=== PATIENT | male | born 1945 | race Caucasian/White ===

== ENCOUNTER → 2019-07-26 | Outpatient (CLI) | payer MEDICARE ==
--- NOTE | 2019-07-26 09:03 | CT ---
EXAMINATION TYPE: CT cervical spine wo con DATE OF EXAM: 07/26/2019 COMPARISON: None HISTORY: neck pain CT DLP: 644.[address] of the cervical spine was performed with bone and soft tissue window settings submitted . Coronal and sagittal reconstruction is obtained. C2-3: Within normal limits C3-4: Mild degenerative disc space narrowing. Posterocentral disc bulge with mild effacement ventral thecal sac. No evidence for central stenosis or tee herniation. Mild bilateral foraminal encroachme nt. C4-5: Severe degenerative disc disease with ventral and dorsal spondylosis. Posterior disc bulge and effacement ventral thecal sac. No evidence for central stenosis or disc herniation. Bilateral foramin al encroachment. C5-6: Severe degenerative disc disease with posterior disc bulge and encapsulating spur resulting in disc endplate complex. Effacement ventral thecal sac with the borderline central stenosis. Severe darrion ateral foraminal encroachment. C6-7:Severe degenerative disc disease with posterior disc bulge and encapsulating spur resulting in d isc endplate complex. Effacement ventral thecal sac with the borderline central stenosis. Severe bila teral foraminal encroachment. C7-T1: Within normal limits No evidence for fracture or malalignment. IMPRESSION: 1. Multilevel degenerative disc disease with spondylosis. Borderline central stenosis C4-5 C5-6. See above.
== END | disposition home or self-care (01) ==
LOC: RADCTMAIN 07:28
PROVIDERS: ATTEND Orthopaedic Surgery Orthopaedic Surgery of the Spine
DX: M48.02 Spinal stenosis, cervical region (principal); M50.11 Cervical disc disorder with radiculopathy, high cervical region; M47.22 Other spondylosis with radiculopathy, cervical region
CPT/HCPCS: 72125

== ENCOUNTER → 2023-12-31 | Outpatient (CLI) | payer MEDICARE ==
[2023-12-31 17:24] LABS: Partial Thromboplastin Time 32.2 sec (22.0-30.0); Prothrombin Time 11.3 sec (10.0-12.5)
[2024-01-01 02:47] LABS: HCT 33.5 % (39.6-50.0); HGB 10.4 g/dL (13.0-17.0); MCH 28.8 pg (27.0-32.0); MCV 92.8 FL (80.0-97.0); NRBC Per 100 WBC 0 X 10*3/uL (0.00-0.01); Platelet Count 397 X 10*3/uL (140-440); RBC 3.61 X 10*6/uL (4.40-5.60); RDW 14.6 % (11.5-14.5); WBC 7.28 X 10*3/uL (4.50-10.00)
[2024-01-01 03:37] LABS: ALT 20 U/L (10-49); AST 24 U/L (14-35); Albumin 3.4 g/dL (3.8-4.9); Albumin/Globulin Ratio 1.13 Ratio (1.60-3.17); Alkaline Phosphatase 83 U/L (41-126); BUN/Creat Ratio 18.44 Ratio (12.00-20.00); Blood Urea Nitrogen 16.6 mg/dL (9.0-27.0); Calcium 9.2 mg/dL (8.7-10.3); Carbon Dioxide 24.8 mmol/L (21.6-31.8); Chloride 102 mmol/L (96-109); Glucose 106 mg/dL (70-110); Potassium 5.1 mmol/L (3.5-5.5); Sodium 140 mmol/L (135-145); Total Bilirubin 0.3 mg/dL (0.3-1.2); Total Protein 6.4 g/dL (6.2-8.2)
== END | disposition home or self-care (01) ==
LOC: LABPAT 15:45
PROVIDERS: ATTEND Orthopaedic Surgery
DX: Z01.818 Encounter for other preprocedural examination (principal); Z22.322 Carrier or suspected carrier of Methicillin resistant Staphylococcus aureus; R94.31 Abnormal electrocardiogram [ECG] [EKG]
CPT/HCPCS: 80053; 85027; 85610; 85730; 87070; 93005

== ENCOUNTER → 2024-01-19 | Outpatient (CLI) | payer MEDICARE ==
[2024-01-19 15:02] LABS: Partial Thromboplastin Time 28.7 sec (22.0-30.0); Prothrombin Time 11.1 sec (10.0-12.5)
[2024-01-19 19:56] LABS: HCT 36.7 % (39.6-50.0); HGB 11.2 g/dL (13.0-17.0); MCH 27.5 pg (27.0-32.0); MCHC 30.5 g/dL (32.0-37.0); MCV 90.2 FL (80.0-97.0); NRBC Per 100 WBC 0 X 10*3/uL (0.00-0.01); Platelet Count 540 X 10*3/uL (140-440); RBC 4.07 X 10*6/uL (4.40-5.60); WBC 7.56 X 10*3/uL (4.50-10.00)
[2024-01-19 20:02] LABS: ALT 32 U/L (10-49); AST 30 U/L (14-35); Albumin 3.6 g/dL (3.8-4.9); Albumin/Globulin Ratio 1.12 Ratio (1.60-3.17); Alkaline Phosphatase 89 U/L (41-126); BUN/Creat Ratio 11.89 Ratio (12.00-20.00); Blood Urea Nitrogen 10.7 mg/dL (9.0-27.0); Calcium 9.2 mg/dL (8.7-10.3); Carbon Dioxide 25.4 mmol/L (21.6-31.8); Chloride 102 mmol/L (96-109); Globulin 3.2 g/dL (1.6-3.3); Glucose 110 mg/dL (70-110); Potassium 4.8 mmol/L (3.5-5.5); Sodium 141 mmol/L (135-145); Total Bilirubin 0.4 mg/dL (0.3-1.2); Total Protein 6.8 g/dL (6.2-8.2)
== END | disposition home or self-care (01) ==
LOC: LABPAT 14:10
PROVIDERS: ATTEND Orthopaedic Surgery
DX: Z01.812 Encounter for preprocedural laboratory examination (principal); T84.06 Wear of articular bearing surface of internal prosthetic joint; Y82.9 Unspecified medical devices associated with adverse incidents
CPT/HCPCS: 80053; 85027; 85610; 85730; 87070

== ENCOUNTER 2024-02-10 09:27 | Inpatient (IN) | payer MEDICARE ==
[~2024-02-10 09:27] MED LIST: ACETAMINOPHEN TAB 500 MG TAB ONE; DEXAMETHASONE SOD PHOSPHATE 4 MG/ML 1 ML VIAL ONE; DILTIAZEM CD 300 MG CAP.ER.24H PO ONE; GABAPENTIN 300 MG CAP ONE; MELOXICAM 7.5 MG TAB ONE; MIDAZOLAM 2 MG/2 ML VIAL ONE; ONDANSETRON 4 MG/2 ML VIAL ONE; ROPIVACAINE 5 MG/ML 30 ML VIAL ONE; SODIUM CHLORIDE 0.9% (PF) VIAL 20 ML ONE; SODIUM CHLORIDE 0.9% 100 ML BAG ONE; SODIUM CHLORIDE 0.9% 50 ML BAG ONE; SODIUM FERRIC GLUCONAT-SUCROSE 62.5 MG/5 ML VIAL ONE; ceFAZolin 10 GM VIAL IVPB ONE
[2024-02-10] MEDS ORDERED: KETAMINE HCL IN 0.9 % NACL 50 MG/5 ML SYRINGE ONE (09:48)
[2024-02-10] MEDS ORDERED: ROPIVACAINE 1,100 MG, SODIUM CHLORIDE 0.9% 500 ML 330 ML, EMPTY PAIN BALL 1 EACH MISCELLANE ONE (09:48)
[2024-02-10] MEDS ORDERED: ROPIVACAINE 5 MG/ML 30 ML VIAL ONE (09:48)
[2024-02-10] MEDS ORDERED: DEXAMETHASONE SOD PHOSPHATE 4 MG/ML 1 ML VIAL ONE (09:48)
[2024-02-10] MEDS ORDERED: LACTATED RINGERS 1,000 ML BAG ONE (09:48)
[2024-02-10] MEDS ORDERED: TRANEXAMIC 1,000 MG/100ML-NACL PREMIX BAG ONE (09:48)
[2024-02-10] MEDS ORDERED: PROPOFOL 10 MG/ML 20 ML VIAL IV ONE (09:48)
[2024-02-10] MEDS ORDERED: MIDAZOLAM 2 MG/2 ML VIAL ONE (09:48)
[2024-02-10] MEDS ORDERED: fentaNYL (PF) 50 MCG/ML 2 ML AMP ONE (09:48)
[2024-02-10] MEDS ORDERED: HYDROmorphone 0.5 MG/0.5 ML SYRINGE ONE ×5 (13:32→23:01)
[2024-02-10] MEDS ORDERED: HYDROcodone/APAP 7.5-325MG 1 EACH TAB ONE ×2 (20:16)
[2024-02-10] MEDS ORDERED: ATORVASTATIN 20 MG TAB ONE ×2 (21:29)
[2024-02-10] MEDS ORDERED: SENNOSIDES-DOCUSATE SODIUM 1 EACH TAB PO ONE ×2 (21:31)
[2024-02-10] MEDS ORDERED: SODIUM CHLORIDE 0.9% 50 ML BAG ONE (22:45)
[2024-02-10] MEDS ORDERED: SODIUM CHLORIDE 0.9% 1,000 ML BAG ONE (22:45)
[2024-02-10] MEDS ORDERED: ceFAZolin 10 GM VIAL IVPB ONE (22:45)
[2024-02-11] MEDS ORDERED: HYDROmorphone 0.5 MG/0.5 ML SYRINGE ONE ×6 (04:14→20:42)
[2024-02-11] MEDS ORDERED: HYDROcodone/APAP 7.5-325MG 1 EACH TAB ONE ×6 (05:38→22:40)
[2024-02-11] MEDS ORDERED: lisinopriL 20 MG TAB ONE ×2 (08:58)
[2024-02-11] MEDS ORDERED: FERROUS SULFATE 325 MG TAB PO ONE ×2 (08:58)
[2024-02-11] MEDS ORDERED: APIXABAN 5 MG TAB ONE ×4 (08:59→20:42)
[2024-02-11] MEDS ORDERED: predniSONE 10 MG TAB ONE ×2 (08:59)
[2024-02-11] MEDS ORDERED: ATORVASTATIN 20 MG TAB ONE ×2 (20:41)
[2024-02-11] MEDS ORDERED: SENNOSIDES-DOCUSATE SODIUM 1 EACH TAB PO ONE ×2 (20:41)
[2024-02-12] MEDS ORDERED: HYDROmorphone 0.5 MG/0.5 ML SYRINGE ONE ×2 (03:31)
[2024-02-12] MEDS ORDERED: HYDROcodone/APAP 7.5-325MG 1 EACH TAB ONE ×4 (05:18→11:55)
[2024-02-12] MEDS ORDERED: FERROUS SULFATE 325 MG TAB PO ONE ×2 (07:26)
[2024-02-12] MEDS ORDERED: APIXABAN 5 MG TAB ONE ×2 (07:29)
[2024-02-12] MEDS ORDERED: predniSONE 10 MG TAB ONE ×2 (07:29)
--- NOTE | 2024-02-13 15:57 | OP ---
OPERATIVE REPORT DATE OF SERVICE : 02/10/2024 PREOPERATIVE DIAGNOSIS: Failed left total knee arthroplasty. POSTOPERATIVE DIAGNOSES: 1. 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 2. Loose femoral component. PROCEDURE: Revision left total knee arthroplasty. SURGEON: Dr. Jasson Salgado. DIGITAL CONTROLS TECHNICAL OFFICER: LUANN Sandoval. ESTIMATED BLOOD LOSS: 100 mL. ANESTHESIA: Spinal with sedation. COMPLICATIONS: None. SPECIMENS REMOVED: Cultures x2. IMPLANTS: 1. [employer] Oxinium constrained femoral component, size 6 left. 2. [employer] press-fit stem, straight, 18 mm x 160 mm. 3. [employer] revision tibial base plate, size 6 left. 4. [employer] press-fit stem, straight, 12 mm x 160 mm. 5. [employer] Yesenia 2 constrained articular insert, size 5 to 6, 13 mm. 6. All components were cemented using [employer] Simplex P antibiotic bone cement x2 with tobramycin. 7. The articulation is Oxinium on polyethylene. INDICATIONS: This is a 78-year-old male who has had a history of a left total knee arthroplasty performed by another physician approximately over 20 years ago. He has recently had more pain and effusions in his left knee. He has had a workup for possible infection, which has been negative and based on the age of his implant and the appearance on the x- rays, there is a high likelihood that he had significant polyethylene wear contributing to his pain and recurrent effusions. After discussing of the surgical and nonsurgical treatment options with him and his family at length, we recommended revision of his left total knee arthroplasty. Informed consent was obtained. OPERATIVE FINDINGS: The operative findings are consistent with significant polyethylene wear of the left total knee. Also, there was loosening of the left femoral component secondary to the polyethylene wear. There is no evidence of any active infection at the time of surgery. DESCRIPTION OF PROCEDURE: The patient was seen in the preoperative area. The consent was reviewed and the operative site was marked with a skin marker. The patient was given an adductor canal block as well as an eye pack block in the preoperative area by anesthesia. The patient was then brought to the operating room and given preoperative antibiotics intravenously, as well as 1 g of tranexamic acid. A spinal anesthetic was then administered by the anesthesia department. A tourniquet was then placed on the left upper thigh and the left lower extremity was prepped and draped in the usual sterile fashion. [facility] time-out was then performed to confirm the patient's name, surgical site, allergies, and consent. The left lower extremity was then exsanguinated and tourniquet was inflated to 250 mmHg. An anterior incision was then performed utilizing the patient's prior scar with the scar being excised. The incision was then carried down through the skin, subcutaneous tissue down to the patellar tendon. Medial parapatellar arthrotomy was then performed. A moderate amount of clear yellow fluid was then encountered. This was then cultured x2. There was no purulent material encountered. The knee was then extended, the patella was everted and the knee was again flexed. Prosthesis was then evaluated and the tibial component appeared to be well fixed. The femoral component did have some loosening mainly around the superior lateral aspect of the component. There was noted to be significant polyethylene wear of the tibial polyethylene. The patellar polyethylene was still intact. Using a small oscillating saw, the cement implant interface was disrupted and the femoral and tibial components were then removed without difficulty. The bone loss was minimal. Next, sequential reaming of the femoral canal was performed by hand. The femur was then sized. The distal cutting block was then placed on the distal femur and the distal femur was then cut. Next, the 4-in-1 cutting block was then placed and set for the appropriate rotation. The anterior and posterior chamfer cuts were then performed, as well as the anterior and posterior cuts. The trial femur was then placed with appropriate length stem. Next, the box cutting guide was placed and the bone was removed from the intercondylar area to accommodate the box. Femoral trial was then removed. Attention was then directed to the tibia. Sequential reaming of the tibial canal was then performed until the appropriate size reamer was reached. The intramedullary tibial cutting guide was then placed. The tibia was freshened with a minimal resection. The tibia was sized and the canal was then prepared for the stem. The tibial trial was then placed and found to have a good fit. The femoral trial was then placed as well. Next insert trials were then sequentially used until the appropriate size insert was reached. With appropriate size insert, the knee was able to fully extend and flex to 125 degrees and was stable to varus and valgus stresses throughout all range of motion. Trials were then removed. The cut surfaces were then irrigated with pulsatile lavage. The knee was also irrigated with IrriSept solution, as well as a Betadine solution. The components were then opened, the cement was mixed, and the components were then cemented in place. The cement was allowed to harden with the knee in full extension. After the cement hardened, the tourniquet was released and hemostasis was obtained. Second gram of tranexamic acid was given. The knee was again irrigated. The knee was again taken through range of motion, found to be stable throughout our range of motion from 0 to 130 degrees and patella tracked normally. The fascia was then closed with 0 Vicryl followed by #2 Stratafix suture. Subcutaneous tissues were closed with 3-0 Vicryl followed by 3-0 Stratafix suture. Exofin skin glue was used for the skin and placed with the knee in flexion. Silver impregnated dressing was then placed over the incision, and the patient was then transferred to recovery room in stable condition. Sonographer Margret Mathew PA-C, was required due to the complexity of surgery and the need for a skilled surgical physician assistant. She assisted in positioning, draping, retraction, and closure of the wound. MMODL / IJN: [id number] /
--- NOTE | 2024-03-09 10:52 | XR ---
Ankit Cesar ID: [id number] : 1945 EXAMINATION TYPE: XR knee limited 2 views LT DATE OF EXAM: 02/10/2024 COMPARISON: NONE HISTORY: 78-year-old male postoperative left knee assessment FINDINGS: Images show revision stemmed total knee arthroplasty. Both distal femoral and proximal tibial compone nts of the prosthesis appear well seated without periprosthetic fracture. Alignment grossly anatomic. Anterior soft tissue swelling with scattered soft tissue air as well as intra-articular air related to recent operation. IMPRESSION: Uncomplicated postoperative appearance revision, stemmed left total knee arthroplasty.
== END 2024-02-12 15:17 | disposition home or self-care (01) | DRG 468 ==
LOC: 4SSUR 09:27 → UNDOADMIN 12:02 → 4SSUR 12:02 → UNDODISIN 02-12 15:17
PROVIDERS: ADMIT Orthopaedic Surgery; ATTEND Orthopaedic Surgery
PROC: 0SPD0JZ Removal of Synthetic Substitute from Left Knee Joint, Open Approach (ICD-10-PCS; principal; 2024-02-10 13:25)
PROC: 0SRD069 Replacement of Left Knee Joint with Oxidized Zirconium on Polyethylene Synthetic Substitute, Cemented, Open Approach (ICD-10-PCS; principal; 2024-02-10 13:25)
DX: T84.093A Other mechanical complication of internal left knee prosthesis, initial encounter (principal); T84.063A Wear of articular bearing surface of internal prosthetic left knee joint, initial encounter; Y79.2 Prosthetic and other implants, materials and accessory orthopedic devices associated with adverse incidents; I25.10 Atherosclerotic heart disease of native coronary artery without angina pectoris; E78.5 Hyperlipidemia, unspecified; I49.5 Sick sinus syndrome; I48.0 Paroxysmal atrial fibrillation; Z79.01 Long term (current) use of anticoagulants; I10 Essential (primary) hypertension; I73.9 Peripheral vascular disease, unspecified; K44.9 Diaphragmatic hernia without obstruction or gangrene; Z95.0 Presence of cardiac pacemaker; Z79.51 Long term (current) use of inhaled steroids; Z79.52 Long term (current) use of systemic steroids; Z79.899 Other long term (current) drug therapy
CPT/HCPCS: 64448; 64999

== ENCOUNTER → 2024-02-10 | Outpatient (CLI) | payer MEDICARE | END | disposition home or self-care (01) | LOC: LABPRL 10:20 | PROVIDERS: ATTEND Orthopaedic Surgery | DX: Z96.652 Presence of left artificial knee joint (principal) | CPT/HCPCS: 87070; 87075; 87205 ==